=== PATIENT | female | born 1975 | race Two or more races ===

== ENCOUNTER 2020-09-14 08:52 | Day surgery (SDC) | payer OTHER ==
[~2020-09-14 08:52] MED LIST: TRANSFER FACTOR PO; VITAMIN C100 MG
== END 2020-09-14 19:30 | disposition home or self-care (01) ==
LOC: CIR.AMB 08:52
PROVIDERS: ATTEND Colon & Rectal Surgery
DX: K64.4 Residual hemorrhoidal skin tags (principal); K64.8 Other hemorrhoids; Z20.822 Contact with and (suspected) exposure to COVID-19